=== PATIENT | male | born 1955 | race Caucasian/White ===

== ENCOUNTER 2016-09-30 10:47 | Emergency (ER) | payer OTHER ==
[~2016-09-30] VITALS: Ht 175.3 cm; Wt 102.0 kg
--- NOTE | ~2016-09-30 | CR142 ---
[facility] A Service of [facility] & [facility] RADIOLOGY TEXT RESULTS PATIENT: JADE RECINOS V LOCATION: SED : 53 UNIT #: [id number] AGE: [address]: MAGED ST SEX: M ORDER DR: [id number] [place] [id number] E MR#: [id number] Acc #: [id number] NAME: JADE RECINOS V. : 1955 SEX: M STUDY DATE/TIME: 09/30/2016 11:34 UNIT: SED ROOM: STUDY DESCRIPTION: CR Hand Min 3 Views Rt Attending Physician: Maged St Ordering Physician: Payal Rosario M.D. Primary Care Physician: Moshe Valdez M.D. MEDICAL IMAGING REPORT This report is preliminary unless electronic signature is present. EXAM Right hand 3 views 09/30/2016 1134 hours HISTORY Pain and laceration at third and fourth metacarpophalangeal joints today while working on a house. Patient hand accidentally struck a door frame. COMPARISON None. FINDINGS AP, lateral and oblique views demonstrate no fracture, dislocation or radiopaque foreign body. IMPRESSION Negative right hand. No fracture, dislocation or radiopaque foreign body. Dictated by... Viviane Rosario M.D. THIS IS AN ELECTRONICALLY VERIFIED REPORT Viviane Rosario M.D. at 09/30/2016 2:37 PM EVELINM/torin TD: 09/30/2016 13:47 JOB #: [id number] MEDICAL IMAGING REPORT Page 1 of 1
[~2016-09-30 10:47] MED LIST: ALAVERT10 M1 PO; ASPERDRINK81 MG PO; CELEBREX PO; CIPRO PO; COZAAR; CRESTOR PO; HYDROCODON-ACE1 EAC8 PO; IBUPROFEN PO; LOSARTAN POTASS50 MG PO; OMEPRAZOLE40 M1 PO; PYRIDIUM100 MG PO
[2016-09-30] MEDS ORDERED: PROTONIX PO (11:01)
[2016-09-30] MEDS ORDERED: FISH OIL300 MG PO (11:02)
[2016-09-30] MEDS ORDERED: ANDROGEL1.25 GM TD (11:02)
== END 2016-09-30 12:28 | disposition home or self-care (01) ==
LOC: SED 10:47
DX: S61.214A Laceration without foreign body of right ring finger without damage to nail, initial encounter (principal); S61.212A Laceration without foreign body of right middle finger without damage to nail, initial encounter; E78.5 Hyperlipidemia, unspecified; K21.9 Gastro-esophageal reflux disease without esophagitis; Z79.899 Other long term (current) drug therapy; Z23 Encounter for immunization; W45.8XXA Other foreign body or object entering through skin, initial encounter; Y92.009 Unspecified place in unspecified non-institutional (private) residence as the place of occurrence of the external cause
CPT/HCPCS: 73130; 90471; 90715; 99283